=== PATIENT | male | born 1935 | race Caucasian/White ===

== ENCOUNTER 2018-08-25 05:26 | Day surgery (SDC) | payer OTHER ==
[~2018-08-25] VITALS: Ht 167.6 cm; Wt 63.7 kg
[2018-08-25] MEDS ORDERED: BUPIVACAINE/PF 0.5% ONE (05:58)
[2018-08-25] MEDS ORDERED: methylPREDNISolone *ACETATE* 40 MG/ML ONE (05:58)
[2018-08-25] MEDS ORDERED: BUPIVACAINE/PF 0.25% ONE (05:58)
[2018-08-25] MEDS ORDERED: LACTATED RINGERS 1,000 ML IV SCH (06:04)
[2018-08-25 06:05] VITALS: BP 169/78
[2018-08-25] MEDS ORDERED: DONE5TAB7 PO (06:22)
[2018-08-25] MEDS ORDERED: MIRT15TA4 PO (06:22)
[2018-08-25] MEDS ORDERED: lidocaine patch TD (06:22)
[2018-08-25] MEDS ORDERED: AMAN100T PO (06:22)
[2018-08-25] MEDS ORDERED: SERT50TA28 PO (06:22)
[2018-08-25] MEDS ORDERED: QUET25TA7 PO (06:22)
[2018-08-25] MEDS ORDERED: GABA100C PO (06:22)
[2018-08-25] MEDS ORDERED: BACL-19 PO (06:22)
[2018-08-25] MEDS ORDERED: VIT1CAPS42 PO (06:22)
[2018-08-25] MEDS ORDERED: NIFE30TA15 PO (06:22)
[2018-08-25] MEDS ORDERED: GUAI200T3 PO (06:22)
[2018-08-25] MEDS ORDERED: BUDE10.2 INH (06:22)
[2018-08-25] MEDS ORDERED: ACET-1600 PO (06:22)
[2018-08-25] MEDS ORDERED: DOCU240C53 PO (06:22)
[2018-08-25] MEDS ORDERED: LISI-170 PO (06:22)
[2018-08-25] MEDS ORDERED: FLUT15.812 NS (06:22)
[2018-08-25] MEDS ORDERED: CARB1TAB47 PO (06:22)
[2018-08-25] MEDS ORDERED: ALEN70TA6 PO (06:22)
[2018-08-25] MEDS ORDERED: CYAN1TAB29 PO (06:22)
[2018-08-25] MEDS ORDERED: TERA1CAP3 PO (06:22)
[2018-08-25] MEDS ORDERED: CHOL100011 PO (06:22)
[2018-08-25] MEDS ORDERED: OMEP-110 PO (06:22)
[2018-08-25] MEDS ORDERED: HYDR-3653 PO (06:44)
[2018-08-25] MEDS ORDERED: PROPOFOL 10 MG/ML, 20ML ONE (06:48)
[2018-08-25] MEDS ORDERED: hydrALAzine 20 MG/ML, 1ML ONE (06:48)
[2018-08-25] MEDS ORDERED: OXYcodone 5 MG/5 ML ORAL.SOL UDC PO PRN (07:00)
[2018-08-25] MEDS ORDERED: METOPROLOL 1 MG/ML, 5ML IV PRN (07:00)
[2018-08-25] MEDS ORDERED: ACETAMINOPHEN 325 MG TABLET PO PRN ×2 (07:00→07:30)
[2018-08-25] MEDS ORDERED: FENTANYL PF 100 MCG/2ML IV PRN (07:00)
[2018-08-25] MEDS ORDERED: hydrALAzine 20 MG/ML, 1ML IV PRN (07:00)
[2018-08-25] MEDS ORDERED: LORazepam 2 MG/ML, 1ML IVPush PRN (07:00)
[2018-08-25] MEDS ORDERED: ONDANSETRON 2MG/ML, 2ML IV PRN (07:00)
[2018-08-25] MEDS ORDERED: MORPHINE SULFATE 4 MG/ML, 1ML IVPush PRN (07:00)
[2018-08-25] MEDS ORDERED: LABETALOL 5MG/ML, 20ML IV PRN (07:00)
[2018-08-25] MEDS ORDERED: ACETAMINOPHEN 650 MG/20.3 ML UDC ONE (07:29)
[2018-08-25 08:31] LABS: CELLS COUNTED 8
== END 2018-08-25 08:25 | disposition home or self-care (01) ==
LOC: OUT 05:26
PROVIDERS: ATTEND Orthopaedic Surgery
DX: T84.84XA Pain due to internal orthopedic prosthetic devices, implants and grafts, initial encounter (principal); T84.030A Mechanical loosening of internal right hip prosthetic joint, initial encounter; G20 Parkinson's disease; I10 Essential (primary) hypertension; K21.9 Gastro-esophageal reflux disease without esophagitis; J44.9 Chronic obstructive pulmonary disease, unspecified; Z79.891 Long term (current) use of opiate analgesic; Z87.891 Personal history of nicotine dependence; Z88.0 Allergy status to penicillin; Z88.2 Allergy status to sulfonamides; Y83.8 Other surgical procedures as the cause of abnormal reaction of the patient, or of later complication, without mention of misadventure at the time of the procedure
CPT/HCPCS: 20610; 73501; 76000; 77002; 87070; 87075; 87205; 89051; 93005; J0360; J2704; J7120; J3490; J1030

== ENCOUNTER 2018-09-18 06:01 | Inpatient (IN) | payer MEDICARE, OTHER ==
[2018-09-18] VITALS (8 sets, daily range): BP systolic 88–121; BP diastolic 24–78
[~2018-09-18] VITALS: Ht 162.6 cm; Wt 66.1 kg
[~2018-09-18 06:01] MED LIST: ACET-1600 PO; ALEN70TA6 PO; AMAN100T PO; BACL-19 PO; BUDE10.2 INH; CARB1TAB47 PO; CHOL100011 PO; CYAN1TAB29 PO; DOCU240C53 PO; DONE5TAB7 PO; FLUT15.812 NS; GABA100C PO; GUAI200T3 PO; HYDR-3653 PO; LISI-170 PO; MIRT15TA4 PO; NIFE30TA15 PO; OMEP-110 PO; QUET25TA7 PO; SERT50TA28 PO; TERA1CAP3 PO; VIT1CAPS42 PO; lidocaine patch TD
[2018-09-18] MEDS: PANTOPRAZOLE 80 MG in SODIUM CHLORIDE 0.9% 100 ML IV SCH ×5 (06:05→16:31)
[2018-09-18] MEDS ORDERED: PANTOPRAZOLE 80 MG in SODIUM CHLORIDE 0.9% 50 ML IVPB ONE (06:07)
[2018-09-18] MEDS ORDERED: LORazepam 2 MG/ML, 1ML ONE (06:10)
[2018-09-18] MEDS ORDERED: SODIUM CHLORIDE 0.9% 1,000ML IVBOLUS ONE (06:30)
[2018-09-18] MEDS ORDERED: SODIUM CHLORIDE FLUSH 10ML SYR IVF ONE (06:30)
[2018-09-18] MEDS ORDERED: LORazepam 2 MG/ML, 1ML IVPush ONE (06:30)
[2018-09-18] MEDS ORDERED: KETAMINE 10 MG/ML, 20ML ONE (06:37)
[2018-09-18 06:43] LABS: MEAN CORPUSCULAR HEMOGLOBIN 31.7 pg (27.5-34.5); MEAN CORPUSCULAR HGB CONC 32.5 g/dL (33.2-36.2); MEAN CORPUSCULAR VOLUME 97.8 fL (81-97); MEAN PLATELET VOLUME 6.9 fL (7.4-10.4); PLATELET COUNT 461 x10^3/uL (130-400); RED BLOOD COUNT 2.54 x10^6/uL (4.38-5.82); RED CELL DISTRIBUTION WIDTH 15.4 % (9.4-14.8)
--- NOTE | 2018-09-18 06:45 | NUR ---
pt david bedolla from [facility]. pt there for rehab s/t r hip repair. per ems, pt had multiple episodes of bright red blood. pt was found to be hypotensive 60s/30s by ems. Fluids received officer captain--approx 250ml with bp improvement to 90s/40s. Linda [employer] and Dr Lopez at bedside. for Central line. Pt medicated per MAR with Ativan--remains very agitated. Pt medicated with Ketamine for central line placement.
[2018-09-18 06:53] LABS: ALBUMIN 2.4 g/dL (3.4-5.0); ANION GAP 14 mmol/L (5-15); CALCIUM 7.3 mg/dL (8.5-10.1); CHLORIDE 112 mmol/L (98-107)
[2018-09-18 06:55] LABS: INTERNATIONAL NORMALIZED RATIO 1.13 (0.93-1.1); PROTHROMBIN TIME 11.8 Seconds (9.6-11.5)
[2018-09-18 06:56] LABS: ALANINE AMINOTRANSFERASE 17 U/L (12-78); ALKALINE PHOSPHATASE 96 U/L (45-117); BILIRUBIN,TOTAL 0.5 mg/dL (0.2-1.0); CREATININE 3.05 mg/dL (0.7-1.3); TOTAL PROTEIN 6.2 g/dL (6.4-8.2)
[2018-09-18 06:58] LABS: MD YES
[2018-09-18 06:59] LABS: BAND#(MANUAL) 0.25 x10^3/uL; BANDS%(MANUAL) 1 % (0-7)
[2018-09-18 07:00] LABS: ANISOCYTOSIS 1+; HYPOCHROMIA 1+; LYMPHS% (MANUAL) 2 % (22-44); MONOS% (MANUAL) 2 % (2-9); POLYCHROMASIA 1+; SEG#(MANUAL) 23.75 x10^3/uL (1.8-6.8); SEGS% (MANUAL) 95 % (42-75)
[2018-09-18] MEDS ORDERED: KETAMINE 100 MG/ML, 5ML IV ONE (07:00)
[2018-09-18] MEDS ORDERED: METRONIDAZOLE PMX 500MG/100ML 100 ML IV ONE (07:00)
[2018-09-18] MEDS ORDERED: CEFEPIME 2 GM in DEXTROSE 5% 100 ML IV ONE (07:00)
[2018-09-18 07:01] LABS: <PLATELET ESTIMATE> INCREASED; <PLT MORPHOLOGY> NORMAL PLT MORPH
--- NOTE | 2018-09-18 07:25 | NUR ---
Central line completed. Awaiting chest xray. Pt with 2 episodes of dark, tarry stool while in ER. Dr Lozano in to [facility] pt for admission. Report to Dustin MOLINA.
--- NOTE | 2018-09-18 07:34 | NUR ---
RECEIVED REPORT FROM NIRAV MOLINA, PLAN OF CARE DISCUSSED. CENTRAL LINE COMPLETED, PT INCONTIENT OF LOOSE BLACK STOOL X 2. CLEANED X 2. REPOSITIONED FOR COMFORT, SHARMA TO DD INSERTED. DR. RAYA AT .
--- NOTE | 2018-09-18 07:56 | NUR ---
AWAITINB BLOOD CULTURES TO BE DRAWN PRIOR TO ANTBX
[2018-09-18] MEDS ORDERED: CEFEPIME 2 GM in DEXTROSE 5% 100 ML IV SCH (08:00)
--- NOTE | 2018-09-18 08:22 | NUR ---
REPORT TO JACQUIE MOLINA, PLAN OF CARE DISCUSSED
[2018-09-18 08:28] LABS: CULTURE INDICATED? YES; MICROSCOPIC INDICATED
[2018-09-18] MEDS ORDERED: PLEASE ENTER HEIGHT AND WEIGHT MC SCH (09:00)
[2018-09-18] MEDS ORDERED: morphine SULFATE 10 MG/ML, 1ML IVPush PRN (10:00)
[2018-09-18] MEDS ORDERED: ONDANSETRON 2MG/ML, 2ML IVPush PRN (10:00)
[2018-09-18] MEDS: METRONIDAZOLE PMX 500MG/100ML 100 ML IV SCH ×3 (11:04→20:02)
[2018-09-18] MEDS: SODIUM CHLORIDE 0.9% 1,000 ML IV SCH (11:06)
[2018-09-18 11:55] LABS: CHLORIDE,URINE RANDOM 31 mmol/L; POTASSIUM,URINE RANDOM 33 mmol/L; SODIUM,URINE RANDOM 205 mmol/L
[2018-09-18] MEDS: LINEZOLID PMX 600MG/300ML 300 ML IV SCH ×2 (12:24→22:11)
[2018-09-18] MEDS: CARBIDOPA/LEVODOPA 25 MG/100 MG TABLET PO SCH ×3 (14:23→20:51)
[2018-09-18] MEDS: AMANTADINE 100 MG CAPSULE PO SCH ×2 (15:59→20:51)
[2018-09-18] MEDS ORDERED: NOREPINEPHRINE 4 MG in SODIUM CHLORIDE 0.9% 246 ML IV PRN (18:30)
[2018-09-18] MEDS: QUETIAPINE 25MG TABLET PO SCH (20:51)
[2018-09-19] MEDS: PANTOPRAZOLE 80 MG in SODIUM CHLORIDE 0.9% 100 ML IV SCH (01:37)
[2018-09-19] MEDS: METRONIDAZOLE PMX 500MG/100ML 100 ML IV SCH ×4 (01:37→20:14)
[2018-09-19 02:26] LABS: ALANINE AMINOTRANSFERASE 17 U/L (12-78); ALBUMIN 2.1 g/dL (3.4-5.0); ANION GAP 11 mmol/L (5-15); CALCIUM 6.4 mg/dL (8.5-10.1); CHLORIDE 118 mmol/L (98-107); CREATININE 1.98 mg/dL (0.7-1.3)
[2018-09-19 02:53] LABS: ALKALINE PHOSPHATASE 86 U/L (45-117); BILIRUBIN,TOTAL 0.7 mg/dL (0.2-1.0); TOTAL PROTEIN 5.6 g/dL (6.4-8.2)
[2018-09-19 04:30] VITALS: BP 129/60
[2018-09-19] MEDS: CARBIDOPA/LEVODOPA 25 MG/100 MG TABLET PO SCH ×5 (05:42→22:18)
[2018-09-19 08:40] LABS: MEAN CORPUSCULAR HEMOGLOBIN 31.1 pg (27.5-34.5); MEAN CORPUSCULAR HGB CONC 32.4 g/dL (33.2-36.2); MEAN CORPUSCULAR VOLUME 96.2 fL (81-97); MEAN PLATELET VOLUME 6.7 fL (7.4-10.4); PLATELET COUNT 425 x10^3/uL (130-400); RED CELL DISTRIBUTION WIDTH 15.8 % (9.4-14.8)
[2018-09-19] MEDS: PANTOPRAZOLE 40 MG IV IVPush SCH ×2 (08:43→20:15)
[2018-09-19] MEDS: AMANTADINE 100 MG CAPSULE PO SCH ×3 (09:00→22:18)
[2018-09-19] MEDS: QUETIAPINE 25MG TABLET PO SCH ×3 (09:00→22:18)
[2018-09-19] MEDS ORDERED: POTASSIUM CHLORIDE 40 MEQ in SODIUM CHLORIDE 0.9% 100 ML IV ONE (09:00)
[2018-09-19] MEDS: SERTRALINE 50MG TABLET PO SCH ×2 (09:00→14:09)
[2018-09-19 09:07] LABS: BASOPHILS # (AUTO) 0.06 x10^3/uL (0-0.1); BASOPHILS % (AUTO) 0 % (0-1); EOSINOPHILS % (AUTO) 1 % (1-7); LYMPHOCYTES # (AUTO) 0.89 x10^3/uL (1-3.4); LYMPHOCYTES % (AUTO) 4 % (22-44); MD SCAN; MONOCYTES # (AUTO) 0.47 x10^3/uL (0.2-0.8); MONOCYTES % (AUTO) 2 % (2-9); NEUTROPHILS # (AUTO) 22.43 x10^3/uL (1.8-6.8); NEUTROPHILS % (AUTO) 93 % (42-75)
[2018-09-19] MEDS: CEFEPIME 2 GM in DEXTROSE 5% 100 ML IV SCH (10:15)
[2018-09-19] MEDS: SODIUM CHLORIDE 0.9% 1,000 ML IV SCH (10:15)
[2018-09-19] MEDS: LINEZOLID PMX 600MG/300ML 300 ML IV SCH (12:09)
[2018-09-19] MEDS ORDERED: CALCIUM GLUCONATE 4.6 MEQ in SODIUM CHLORIDE 0.9% 50 ML IV ONE (15:00)
[2018-09-20 01:40] VITALS: BP 135/70
[2018-09-20] MEDS: METRONIDAZOLE PMX 500MG/100ML 100 ML IV SCH ×3 (04:12→20:29)
[2018-09-20] MEDS: CARBIDOPA/LEVODOPA 25 MG/100 MG TABLET PO SCH ×4 (06:11→17:22)
[2018-09-20] MEDS ORDERED: CALCIUM GLUCONATE 4.6 MEQ in SODIUM CHLORIDE 0.9% 50 ML IV ONE (08:00)
[2018-09-20] MEDS: SERTRALINE 50MG TABLET PO SCH (09:00)
[2018-09-20] MEDS: QUETIAPINE 25MG TABLET PO SCH ×2 (09:00→21:05)
[2018-09-20] MEDS: AMANTADINE 100 MG CAPSULE PO SCH ×3 (09:00→21:05)
[2018-09-20 09:14] VITALS: BP 125/74
[2018-09-20 10:50] LABS: MEAN CORPUSCULAR HGB CONC 32.5 g/dL (33.2-36.2); MEAN CORPUSCULAR VOLUME 95.4 fL (81-97); MEAN PLATELET VOLUME 6.5 fL (7.4-10.4); PLATELET COUNT 453 x10^3/uL (130-400); RED BLOOD COUNT 3.03 x10^6/uL (4.38-5.82); RED CELL DISTRIBUTION WIDTH 15.4 % (9.4-14.8)
[2018-09-20 10:56] LABS: ANION GAP 10 mmol/L (5-15); CALCIUM 7.4 mg/dL (8.5-10.1); CHLORIDE 118 mmol/L (98-107)
[2018-09-20 10:58] LABS: CREATININE 0.94 mg/dL (0.7-1.3)
[2018-09-20 11:08] LABS: BASOPHILS % (AUTO) 0 % (0-1); EOSINOPHILS # (AUTO) 0.19 x10^3/uL (0-0.4); EOSINOPHILS % (AUTO) 1 % (1-7); LYMPHOCYTES # (AUTO) 0.75 x10^3/uL (1-3.4); LYMPHOCYTES % (AUTO) 4 % (22-44); MD SCAN; MONOCYTES % (AUTO) 2 % (2-9); NEUTROPHILS # (AUTO) 17.58 x10^3/uL (1.8-6.8); NEUTROPHILS % (AUTO) 93 % (42-75)
[2018-09-20 13:00] VITALS: BP 113/66
[2018-09-20] MEDS: SODIUM CHLORIDE 0.9% 1,000 ML IV SCH (13:58)
[2018-09-20] MEDS: PANTOPRAZOLE 40 MG IV IVPush SCH ×2 (13:58→20:00)
[2018-09-20] MEDS ORDERED: CARBIDOPA/LEVODOPA 25 MG/100 MG TABLET PO SCH (14:00)
[2018-09-20] MEDS: CEFEPIME 2 GM in DEXTROSE 5% 100 ML IV SCH (15:17)
[2018-09-20 20:19] VITALS: BP 166/67
[2018-09-20] MEDS: CARBIDOPA/LEVODOPA CR 50 MG/200 MG TABLET PO SCH (21:05)
[2018-09-21] MEDS: METRONIDAZOLE PMX 500MG/100ML 100 ML IV SCH ×4 (02:16→20:21)
[2018-09-21 02:34] VITALS: BP 165/76
[2018-09-21] MEDS ORDERED: CEFEPIME 2 GM in DEXTROSE 5% 100 ML IV SCH (03:30)
[2018-09-21 05:11] LABS: MEAN CORPUSCULAR HEMOGLOBIN 30.8 pg (27.5-34.5); MEAN CORPUSCULAR HGB CONC 32.5 g/dL (33.2-36.2); MEAN PLATELET VOLUME 6.7 fL (7.4-10.4); PLATELET COUNT 440 x10^3/uL (130-400); RED BLOOD COUNT 3.09 x10^6/uL (4.38-5.82); RED CELL DISTRIBUTION WIDTH 15.2 % (9.4-14.8)
[2018-09-21 05:31] LABS: ANION GAP 11 mmol/L (5-15); CALCIUM 7.3 mg/dL (8.5-10.1); CHLORIDE 113 mmol/L (98-107)
[2018-09-21] MEDS: CARBIDOPA/LEVODOPA 25 MG/100 MG TABLET PO SCH ×4 (05:41→17:34)
[2018-09-21 06:19] LABS: BASOPHILS # (AUTO) 0.03 x10^3/uL (0-0.1); BASOPHILS % (AUTO) 0 % (0-1); EOSINOPHILS # (AUTO) 0.35 x10^3/uL (0-0.4); EOSINOPHILS % (AUTO) 2 % (1-7); LYMPHOCYTES # (AUTO) 0.96 x10^3/uL (1-3.4); LYMPHOCYTES % (AUTO) 6 % (22-44); MD SCAN; MONOCYTES # (AUTO) 0.59 x10^3/uL (0.2-0.8); MONOCYTES % (AUTO) 4 % (2-9); NEUTROPHILS # (AUTO) 14.54 x10^3/uL (1.8-6.8); NEUTROPHILS % (AUTO) 88 % (42-75)
[2018-09-21 06:35] VITALS: BP 183/84
[2018-09-21] MEDS: LABETALOL 5MG/ML, 20ML IVPush PRN (08:08)
[2018-09-21] MEDS: SODIUM CHLORIDE 0.9% 1,000 ML IV SCH (08:11)
[2018-09-21] MEDS: PANTOPRAZOLE 40 MG IV IVPush SCH (08:13)
[2018-09-21 10:31] VITALS: BP 164/64
[2018-09-21] MEDS: AMANTADINE 100 MG CAPSULE PO SCH ×3 (11:12→20:21)
[2018-09-21 12:15] VITALS: BP 160/62
[2018-09-21] MEDS: QUETIAPINE 25MG TABLET PO SCH ×2 (14:01→20:21)
[2018-09-21] MEDS: SERTRALINE 50MG TABLET PO SCH (14:02)
[2018-09-21] MEDS: CEFEPIME 2 GM in DEXTROSE 5% 100 ML IV SCH ×2 (14:43→21:52)
[2018-09-21] MEDS: PANTOPROZOLE 40MG TABLET PO SCH (16:43)
[2018-09-21 19:03] VITALS: BP 110/57
[2018-09-21] MEDS: CARBIDOPA/LEVODOPA CR 50 MG/200 MG TABLET PO SCH (20:21)
[2018-09-22] VITALS (10 sets, daily range): BP systolic 127–196; BP diastolic 61–76
[2018-09-22] MEDS: SODIUM CHLORIDE 0.9% 1,000 ML IV SCH (01:17)
[2018-09-22] MEDS: METRONIDAZOLE PMX 500MG/100ML 100 ML IV SCH ×4 (02:11→20:21)
[2018-09-22 04:50] LABS: MEAN CORPUSCULAR HEMOGLOBIN 31.1 pg (27.5-34.5); MEAN CORPUSCULAR HGB CONC 32.7 g/dL (33.2-36.2); MEAN CORPUSCULAR VOLUME 95.1 fL (81-97); MEAN PLATELET VOLUME 6.7 fL (7.4-10.4); PLATELET COUNT 464 x10^3/uL (130-400); RED BLOOD COUNT 2.97 x10^6/uL (4.38-5.82); RED CELL DISTRIBUTION WIDTH 15.2 % (9.4-14.8)
[2018-09-22 04:58] LABS: ANION GAP 10 mmol/L (5-15); CALCIUM 7.1 mg/dL (8.5-10.1); CHLORIDE 112 mmol/L (98-107); CREATININE 0.76 mg/dL (0.7-1.3)
[2018-09-22] MEDS: CEFEPIME 2 GM in DEXTROSE 5% 100 ML IV SCH ×3 (05:42→22:56)
[2018-09-22] MEDS: CARBIDOPA/LEVODOPA 25 MG/100 MG TABLET PO SCH ×4 (05:42→17:12)
[2018-09-22] MEDS: PANTOPROZOLE 40MG TABLET PO SCH ×2 (05:42→17:12)
[2018-09-22 05:53] LABS: BASOPHILS # (AUTO) 0.04 x10^3/uL (0-0.1); BASOPHILS % (AUTO) 0 % (0-1); EOSINOPHILS # (AUTO) 0.35 x10^3/uL (0-0.4); EOSINOPHILS % (AUTO) 3 % (1-7); LYMPHOCYTES # (AUTO) 0.96 x10^3/uL (1-3.4); LYMPHOCYTES % (AUTO) 8 % (22-44); MD SCAN; MONOCYTES # (AUTO) 0.78 x10^3/uL (0.2-0.8); MONOCYTES % (AUTO) 7 % (2-9); NEUTROPHILS % (AUTO) 82 % (42-75)
[2018-09-22] MEDS: SERTRALINE 50MG TABLET PO SCH (07:59)
[2018-09-22] MEDS: QUETIAPINE 25MG TABLET PO SCH ×2 (07:59→20:20)
[2018-09-22] MEDS: AMANTADINE 100 MG CAPSULE PO SCH ×3 (07:59→20:20)
[2018-09-22] MEDS ORDERED: POTASSIUM CHLORIDE 40 MEQ in SODIUM CHLORIDE 0.9% 500 ML IV ONE (08:00)
[2018-09-22] MEDS ORDERED: PROPOFOL 10 MG/ML, 50ML ONE (12:45)
[2018-09-22] MEDS ORDERED: ONDANSETRON ODT 8 MG PO PRN (13:30)
[2018-09-22] MEDS ORDERED: ONDANSETRON 2MG/ML, 2ML IV PRN (13:30)
[2018-09-22] MEDS ORDERED: DIPHENHYDRAMINE 50 MG/ML, 1ML IVPush PRN (13:30)
[2018-09-22] MEDS ORDERED: METOPROLOL 1 MG/ML, 5ML IV PRN (13:30)
[2018-09-22] MEDS ORDERED: EPHEDRINE 50 MG/ML, 1ML IM PRN (13:30)
[2018-09-22] MEDS ORDERED: PROMETHAZINE 25 MG/ML, 1ML IV PRN (13:30)
[2018-09-22] MEDS ORDERED: EPHEDRINE 50 MG/ML, 1ML IVPush PRN (13:30)
[2018-09-22] MEDS ORDERED: FENTANYL PF 100 MCG/2ML ONE (13:42)
[2018-09-22] MEDS: FENTANYL PF 100 MCG/2ML IV PRN ×2 (13:44→13:54)
[2018-09-22] MEDS: LABETALOL 5MG/ML, 20ML IVPush PRN (14:20)
[2018-09-22] MEDS ORDERED: hydrALAzine 20 MG/ML, 1ML IV PRN (16:00)
[2018-09-22] MEDS: CARBIDOPA/LEVODOPA CR 50 MG/200 MG TABLET PO SCH (20:20)
[2018-09-22] MEDS: MAGNESIUM SULFATE PMX 2GM/50ML 50 ML IV SCH ×2 (21:51→23:56)
[2018-09-23 01:23] VITALS: BP 140/56
[2018-09-23] MEDS: METRONIDAZOLE PMX 500MG/100ML 100 ML IV SCH (03:07)
[2018-09-23] MEDS: PANTOPROZOLE 40MG TABLET PO SCH ×2 (06:10→16:16)
[2018-09-23] MEDS: CEFEPIME 2 GM in DEXTROSE 5% 100 ML IV SCH (06:10)
[2018-09-23] MEDS: CARBIDOPA/LEVODOPA 25 MG/100 MG TABLET PO SCH ×4 (06:10→16:49)
[2018-09-23 07:55] VITALS: BP 153/67
[2018-09-23 08:18] LABS: BASOPHILS # (AUTO) 0.02 x10^3/uL (0-0.1); BASOPHILS % (AUTO) 0 % (0-1); EOSINOPHILS % (AUTO) 3 % (1-7); LYMPHOCYTES # (AUTO) 0.85 x10^3/uL (1-3.4); LYMPHOCYTES % (AUTO) 9 % (22-44); MD NO; MEAN CORPUSCULAR HEMOGLOBIN 30.7 pg (27.5-34.5); MEAN CORPUSCULAR HGB CONC 32.7 g/dL (33.2-36.2); MEAN PLATELET VOLUME 6.2 fL (7.4-10.4); MONOCYTES % (AUTO) 7 % (2-9); NEUTROPHILS # (AUTO) 8.14 x10^3/uL (1.8-6.8); NEUTROPHILS % (AUTO) 81 % (42-75); PLATELET COUNT 530 x10^3/uL (130-400); RED BLOOD COUNT 3.14 x10^6/uL (4.38-5.82)
[2018-09-23 08:29] LABS: ANION GAP 10 mmol/L (5-15); CALCIUM 7.5 mg/dL (8.5-10.1); CHLORIDE 109 mmol/L (98-107); CREATININE 0.66 mg/dL (0.7-1.3)
[2018-09-23] MEDS: SERTRALINE 50MG TABLET PO SCH (08:44)
[2018-09-23] MEDS: AMANTADINE 100 MG CAPSULE PO SCH ×2 (08:44→16:16)
[2018-09-23] MEDS: QUETIAPINE 25MG TABLET PO SCH (08:44)
[2018-09-23] MEDS ORDERED: FLUTICASONE NASAL SPRAY 16GM NAS SCH (09:00)
[2018-09-23] MEDS ORDERED: PANT40TA5 PO (09:41)
[2018-09-23] MEDS: POTASSIUM CHLORIDE 20 MEQ TAB.ER.PRT PO SCH ×2 (10:49→14:11)
[2018-09-23 13:49] VITALS: BP 144/61
== END 2018-09-23 17:30 | DRG 871 ==
LOC: ED 07:18 → EDIP 07:19 → SUATTDRO 07:31 → ED 07:32 → CCU 08:33 → 4EST 09-19 21:48
PROVIDERS: ADMIT Internal Medicine; ATTEND Internal Medicine
PROC: 0T9B70Z Drainage of Bladder with Drainage Device, Via Natural or Artificial Opening (ICD-10-PCS; principal; 2018-09-18)
PROC: 30233N1 Transfusion of Nonautologous Red Blood Cells into Peripheral Vein, Percutaneous Approach (ICD-10-PCS; 2018-09-18)
PROC: 02HV33Z Insertion of Infusion Device into Superior Vena Cava, Percutaneous Approach (ICD-10-PCS; 2018-09-18)
PROC: B548ZZA Ultrasonography of Superior Vena Cava, Guidance (ICD-10-PCS; 2018-09-18)
PROC: 0DJ08ZZ Inspection of Upper Intestinal Tract, Via Natural or Artificial Opening Endoscopic (ICD-10-PCS; 2018-09-22)
DX: A41.9 Sepsis, unspecified organism (principal); G93.41 Metabolic encephalopathy; R57.8 Other shock; R65.21 Severe sepsis with septic shock; K25.4 Chronic or unspecified gastric ulcer with hemorrhage; N17.9 Acute kidney failure, unspecified; D62 Acute posthemorrhagic anemia; N39.0 Urinary tract infection, site not specified; D53.9 Nutritional anemia, unspecified; D75.89 Other specified diseases of blood and blood-forming organs; E86.0 Dehydration; E88.09 Other disorders of plasma-protein metabolism, not elsewhere classified; F02.80 Dementia in other diseases classified elsewhere, unspecified severity, without behavioral disturbance, psychotic disturbance, mood disturbance, and anxiety; F32.9 Major depressive disorder, single episode, unspecified; G20 Parkinson's disease; G62.9 Polyneuropathy, unspecified; H35.30 Unspecified macular degeneration; I10 Essential (primary) hypertension; J44.9 Chronic obstructive pulmonary disease, unspecified; K21.0 Gastro-esophageal reflux disease with esophagitis; K22.70 Barrett's esophagus without dysplasia; K44.9 Diaphragmatic hernia without obstruction or gangrene; K59.09 Other constipation; M81.0 Age-related osteoporosis without current pathological fracture; N40.0 Benign prostatic hyperplasia without lower urinary tract symptoms; Z66 Do not resuscitate; R13.10 Dysphagia, unspecified; B96.20 Unspecified Escherichia coli [E. coli] as the cause of diseases classified elsewhere; B96.89 Other specified bacterial agents as the cause of diseases classified elsewhere; Z88.0 Allergy status to penicillin; Z87.891 Personal history of nicotine dependence; Z96.641 Presence of right artificial hip joint; Z96.651 Presence of right artificial knee joint
CPT/HCPCS: 36415; 36430; 71045; 76770; 80048; 80053; 81001; 82330; 82436; 82607; 83605; 83735; 84100; 84133; 84300; 84443; 85014; 85018; 85025; 85610; 85730; 86850; 86900; 86923; 87040; 87077; 87081; 87086; 87186; 93005; 93306; 96365; 96375; 99291; G0378; J0610; J2020; J2704; J3010; J3480; C9113; J0360; J2060; J2270; J3475; J7030; J7040; P9016